=== PATIENT | female | born 1995 | race Caucasian/White ===

== ENCOUNTER → 2022-09-27 | Outpatient (REF) ==
[2022-09-29 06:09] LABS: RUBEOLA IgG ANTIBODY 46.2 AU/mL (Immune >16.4)
== END ==
LOC: M LAB 09:56
PROVIDERS: ATTEND Nurse Practitioner Adult Health
DX: Z00.00 Encounter for general adult medical examination without abnormal findings (principal)

== ENCOUNTER → 2022-10-02 | Outpatient (REF) | LOC: M EMP 08:18 | PROVIDERS: ATTEND Family Medicine | DX: Z11.52 Encounter for screening for COVID-19 (principal) ==

== ENCOUNTER → 2022-10-09 | Outpatient (REF) | LOC: M EMP 08:00 | PROVIDERS: ATTEND Family Medicine | DX: Z11.52 Encounter for screening for COVID-19 (principal) ==

== ENCOUNTER → 2022-10-16 | Outpatient (REF) | LOC: M EMP 11:20 | PROVIDERS: ATTEND Family Medicine | DX: Z11.52 Encounter for screening for COVID-19 (principal) ==

== ENCOUNTER → 2022-10-23 | Outpatient (REF) | LOC: M EMP 13:59 | PROVIDERS: ATTEND Family Medicine | DX: Z11.52 Encounter for screening for COVID-19 (principal) ==

== ENCOUNTER → 2022-10-30 | Outpatient (REF) | LOC: M EMP 09:37 | PROVIDERS: ATTEND Family Medicine | DX: Z11.52 Encounter for screening for COVID-19 (principal) ==

== ENCOUNTER 2022-11-04 11:13 | Emergency (ER) | payer OTHER ==
[~2022-11-04] VITALS: Ht 175.3 cm; Wt 135.1 kg
[2022-11-04 11:13] VITALS: BP 126/78
[2022-11-04] MEDS ORDERED: IBUP-1022 PO (12:13)
== END 2022-11-04 12:39 | disposition home or self-care (01) ==
LOC: M ED 11:13
DX: S40.212A Abrasion of left shoulder, initial encounter (principal); W10.8XXA Fall (on) (from) other stairs and steps, initial encounter; Y92.89 Other specified places as the place of occurrence of the external cause; Y93.01 Activity, walking, marching and hiking; Y99.0 Civilian activity done for income or pay

== ENCOUNTER 2022-11-07 10:06 | Emergency (ER) | payer OTHER ==
[~2022-11-07] VITALS: Ht 175.3 cm; Wt 134.3 kg
[~2022-11-07 10:06] MED LIST: IBUP-1022 PO
[2022-11-07 11:33] VITALS: BP 134/87
== END 2022-11-07 11:41 | disposition home or self-care (01) ==
LOC: M ED 10:06
DX: S43.402A Unspecified sprain of left shoulder joint, initial encounter (principal); S40.212A Abrasion of left shoulder, initial encounter; W01.10XA Fall on same level from slipping, tripping and stumbling with subsequent striking against unspecified object, initial encounter; Y92.89 Other specified places as the place of occurrence of the external cause; Y93.89 Activity, other specified; Y99.0 Civilian activity done for income or pay

== ENCOUNTER → 2022-11-09 | Outpatient (REF) | LOC: M EMP 10:56 | PROVIDERS: ATTEND Family Medicine | DX: Z11.52 Encounter for screening for COVID-19 (principal) ==

== ENCOUNTER → 2022-11-13 | Outpatient (REF) | LOC: M EMP 09:53 | PROVIDERS: ATTEND Family Medicine | DX: Z11.52 Encounter for screening for COVID-19 (principal) ==

== ENCOUNTER 2022-11-22 12:50 | Emergency (ER) | payer OTHER ==
[~2022-11-22] VITALS: Ht 175.3 cm; Wt 135.5 kg
[2022-11-22] MEDS ORDERED: NEOSPORIN OINT 0.9 GM PKT TOP ONE (14:05)
[2022-11-22 15:13] VITALS: BP 139/97; TEMP 97.1; O2SAT 99
== END 2022-11-22 15:14 | disposition home or self-care (01) ==
LOC: M ED 12:50
DX: S83.92XA Sprain of unspecified site of left knee, initial encounter (principal); S93.402A Sprain of unspecified ligament of left ankle, initial encounter; W01.10XA Fall on same level from slipping, tripping and stumbling with subsequent striking against unspecified object, initial encounter; Y92.89 Other specified places as the place of occurrence of the external cause; Y93.01 Activity, walking, marching and hiking; Y99.0 Civilian activity done for income or pay